=== PATIENT | female | born 1940 | race Caucasian/White ===

== ENCOUNTER 2017-08-01 01:38 | Inpatient (IN) | payer MEDICARE, OTHER ==
[~2017-08-01] VITALS: Ht 172.7 cm; Wt 70.5 kg
[2017-08-01 02:56] LABS: Basophils # (auto) 0.1 uL; Basophils % (auto) 0.6 % (0.0-2.0); Eosinophils # (auto) 0 uL; Hemoglobin 15.2 g/dL (12.2-16.2); Lymphocytes # (auto) 0.7 uL
[2017-08-01 02:58] LABS: Hematocrit 44.2 % (36.0-46.0); Lymphocytes % (auto) 7.9 % (10.0-50.0); Mean Corpuscular Hemoglobin 35.2 pg (28.0-32.0); Mean Corpuscular Hgb Conc. 34.5 g/dL (32.0-36.0); Mean Corpuscular Volume 102.1 fL (80.0-100.0); Monocytes # (auto) 0.3 uL; Monocytes % (auto) 3.6 % (0.0-12.0); Neutrophils # (auto) 7.7 uL; Neutrophils % (auto) 87.9 % (37.0-80.0); Platelet Count (auto) 263 10^3/uL (140-450); Red Blood Cells 4.33 10^6/uL (4.0-5.20); Red Cell Distribution Width 12.8 % (11.8-14.3); White Blood Cell 8.8 10^3/uL (4.4-10.8)
[2017-08-01 03:09] LABS: INR 0.98 (0.9-1.15); Partial Thromboplastin Time 22.1 sec (22.64-33.71); Prothrombin Time 10.7 sec (9.37-12.3)
[2017-08-01 03:15] LABS: Alanine Aminotransferase 18 U/L (13-56); Albumin 3.9 g/dL (3.4-5.0); Amylase 35 U/L (25-115); Anion Gap 15 (5-15); Aspartate Aminotransferase 12 U/L (15-37); BUN/Creatinine Ratio 13.1; Blood Urea Nitrogen 11 mg/dL (7-18); Calcium 8.7 mg/dL (8.5-10.1); Carbon Dioxide 21 mmol/L (21-32); Chloride 105 mmol/L (98-107); GFR African American 85 mL/min; GFR Non-African American 70 mL/min; Glucose 157 mg/dL (74-106); Lipase 143 U/L (73-393); Magnesium 2.2 mg/dL (1.6-2.6); Potassium 3.5 mmol/L (3.5-5.1); Sodium 141 mmol/L (136-145)
[2017-08-01] MEDS ORDERED: SODIUM CHLORIDE 0.9% 1,000 ML IV ONE (03:15)
[2017-08-01] MEDS ORDERED: ONDANSETRON HCL 4 MG/2 ML VIAL IV ONE (03:15)
[2017-08-01] MEDS ORDERED: MORPHINE SULFATE 4 MG/ML SYR/VIAL IV ONE ×2 (03:15→05:45)
[2017-08-01 03:20] LABS: Alkaline Phosphatase 107 U/L (45-117); Bilirubin, Total 0.6 mg/dL (0.2-1.0); Total Protein 7.4 g/dL (6.4-8.2)
[2017-08-01] MEDS ORDERED: PROMETHAZINE HCL 25 MG/ML 1ML IV ONE (04:15)
[2017-08-01] MEDS ORDERED: SODIUM CHLORIDE 0.9% 1,000 ML IV SCH ×2 (06:00→12:45)
[2017-08-01] MEDS ORDERED: KETOROLAC TROMETH 30 MG/ML 1ML VIAL IV ONE (06:00)
[2017-08-01] MEDS ORDERED: SODIUM CHLORIDE 0.9% 500 ML IV ONE (06:00)
[2017-08-01] MEDS ORDERED: LOPERAMIDE HCL 2 MG CAP PO ONE (06:00)
[2017-08-01] MEDS ORDERED: TEMAZEPAM 15 MG CAP PO PRN (06:00)
[2017-08-01] MEDS ORDERED: LOPERAMIDE HCL 2 MG CAP PO PRN (06:00)
[2017-08-01] MEDS ORDERED: ACETAMINOPHEN 325 MG TAB PO PRN (06:00)
[2017-08-01] MEDS ORDERED: MORPHINE SULFATE 4 MG/ML SYR/VIAL IV PRN (06:00)
[2017-08-01] MEDS ORDERED: PANTOPRAZOLE 40 MG/10 ML VIAL IV ONE (06:30)
[2017-08-01] MEDS: PROMETHAZINE HCL 25 MG/ML 1ML IV PRN ×2 (09:43→20:52)
[2017-08-01] MEDS: ENOXAPARIN SOD 40 MG/0.4 ML SYRINGE SC SCH (09:43)
[2017-08-01] MEDS ORDERED: LEVOFLOXACIN 750MG 150 ML IV ONE (10:45)
[2017-08-01] MEDS ORDERED: SODIUM CHLORIDE 0.9% 2,000 ML IV ONE (10:45)
[2017-08-01 11:13] LABS: Basophils # (auto) 0 uL; Eosinophils # (auto) 0 uL; Monocytes # (auto) 0.2 uL
[2017-08-01 11:15] LABS: Basophils % (auto) 0.2 % (0.0-2.0); Eosinophils % (auto) 0.1 % (0.0-7.0); Hematocrit 44.5 % (36.0-46.0); Hemoglobin 14.9 g/dL (12.2-16.2); Lymphocytes # (auto) 0.4 uL; Lymphocytes % (auto) 4.9 % (10.0-50.0); Mean Corpuscular Hemoglobin 34.5 pg (28.0-32.0); Mean Corpuscular Hgb Conc. 33.4 g/dL (32.0-36.0); Mean Corpuscular Volume 103.3 fL (80.0-100.0); Monocytes % (auto) 1.9 % (0.0-12.0); Neutrophils % (auto) 92.9 % (37.0-80.0); Platelet Count (auto) 286 10^3/uL (140-450); Red Cell Distribution Width 13.2 % (11.8-14.3); White Blood Cell 8.6 10^3/uL (4.4-10.8)
[2017-08-01] MEDS ORDERED: metroNIDAZOLE 500MG/100ML 100 ML IV ONE (12:00)
[2017-08-01] MEDS: HYDROcodone-ACET 5/325MG TAB PO PRN ×2 (12:41→23:55)
[2017-08-01] MEDS ORDERED: METO-159 PO (14:52)
[2017-08-01] MEDS ORDERED: ZOLP10TA PO (14:52)
[2017-08-01 15:00] VITALS: BP 170/103
[2017-08-01] MEDS ORDERED: ZOLPIDEM TARTRATE 5 MG TAB PO PRN (15:00)
[2017-08-01] MEDS: METOPROLOL SUCCINATE XL 50 MG TAB PO SCH (15:54)
[2017-08-01 17:00] VITALS: BP 132/81
[2017-08-01 17:58] LABS: Urine Bacteria NONE SEEN /hpf (None Seen); Urine Blood 2+ /uL (Negative); Urine Mucus FEW (None Seen); Urine Specific Gravity 1.014 (1.001-1.035); Urine WBC 2 /hpf (0 - 5)
[2017-08-01] MEDS ORDERED: METO1TAB9 PO (17:59)
[2017-08-01] MEDS: metroNIDAZOLE 500MG/100ML 100 ML IV SCH (20:51)
[2017-08-01] MEDS: hydrALAZINE HCL 20 MG/ML VL IV PRN ×2 (20:52→23:53)
[2017-08-01] MEDS ORDERED: LORazepam 0.5 MG TAB PO PRN (21:15)
[2017-08-01] MEDS ORDERED: hydrALAZINE HCL 20 MG/ML VL IV PRN (21:15)
[2017-08-01 21:52] VITALS: BP 202/99
[2017-08-01] MEDS: PANTOPRAZOLE 40 MG/10 ML VIAL IV SCH (22:24)
[2017-08-02] MEDS: metroNIDAZOLE 500MG/100ML 100 ML IV SCH ×2 (04:34→13:22)
[2017-08-02 05:00] VITALS: BP 153/92
[2017-08-02 05:37] LABS: Eosinophils # (auto) 0 uL; White Blood Cell 11.8 10^3/uL (4.4-10.8)
[2017-08-02 05:40] LABS: Basophils # (auto) 0.1 uL; Basophils % (auto) 1.2 % (0.0-2.0); Hemoglobin 14.9 g/dL (12.2-16.2); Lymphocytes # (auto) 0.7 uL; Lymphocytes % (auto) 5.6 % (10.0-50.0); Mean Corpuscular Hemoglobin 34.5 pg (28.0-32.0); Mean Corpuscular Hgb Conc. 33.8 g/dL (32.0-36.0); Mean Corpuscular Volume 102.1 fL (80.0-100.0); Monocytes # (auto) 0.6 uL; Monocytes % (auto) 5.1 % (0.0-12.0); Neutrophils # (auto) 10.4 uL; Neutrophils % (auto) 88.1 % (37.0-80.0); Platelet Count (auto) 323 10^3/uL (140-450); Red Blood Cells 4.31 10^6/uL (4.0-5.20); Red Cell Distribution Width 13.1 % (11.8-14.3)
[2017-08-02 05:48] LABS: Albumin 3.7 g/dL (3.4-5.0); BUN/Creatinine Ratio 15.8; Calcium 8.5 mg/dL (8.5-10.1)
[2017-08-02 05:51] LABS: Bilirubin, Total 1.6 mg/dL (0.2-1.0); Total Protein 7.1 g/dL (6.4-8.2)
[2017-08-02 06:01] LABS: Potassium 2.7 mmol/L (3.5-5.1)
[2017-08-02] MEDS ORDERED: POTASSIUM CHL 10% (20 MEQ/15ML) 15ml ORAL SOLN PO ONE (06:15)
[2017-08-02 08:00] VITALS: BP 161/91
[2017-08-02 09:00] VITALS: BP 161/91
[2017-08-02] MEDS: PANTOPRAZOLE 40 MG/10 ML VIAL IV SCH (09:06)
[2017-08-02] MEDS: ENOXAPARIN SOD 40 MG/0.4 ML SYRINGE SC SCH (09:07)
[2017-08-02] MEDS: METOPROLOL SUCCINATE XL 50 MG TAB PO SCH (09:07)
[2017-08-02] MEDS ORDERED: LEVOFLOXACIN 750MG 150 ML IV SCH (10:00)
[2017-08-02 11:10] LABS: Albumin 3.8 g/dL (3.4-5.0); BUN/Creatinine Ratio 12.3; Bilirubin, Total 1.5 mg/dL (0.2-1.0); Calcium 8.9 mg/dL (8.5-10.1); Potassium 3.6 mmol/L (3.5-5.1)
[2017-08-02] MEDS ORDERED: SODIUM CHLORIDE 0.9% 1,000 ML IV ONE (11:45)
[2017-08-02] MEDS ORDERED: SODIUM CHLORIDE 0.9% 1,000 ML IV SCH (12:45)
[2017-08-02 13:00] VITALS: BP 155/86
[2017-08-02 13:01] VITALS: BP 155/86
== END 2017-08-02 15:10 | disposition home or self-care (01) | DRG 392 ==
LOC: ER 01:38 → EDBD 01:38 → OVERFLOW 01:39 → WEST WING 14:27
PROVIDERS: ADMIT Nurse Practitioner; ATTEND Internal Medicine
DX: K57.90 Diverticulosis of intestine, part unspecified, without perforation or abscess without bleeding (principal); E27.9 Disorder of adrenal gland, unspecified; K43.9 Ventral hernia without obstruction or gangrene; Z90.710 Acquired absence of both cervix and uterus; Z88.0 Allergy status to penicillin; Z88.2 Allergy status to sulfonamides
CPT/HCPCS: 36415; 71045; 74176; 80053; 81001; 82150; 83690; 83735; 84484; 85025; 85610; 85730; 87086; 93005; 94761; 96374; 96375; 96376; 97163; C9113; J1885; J1956; J2405; J3490

== ENCOUNTER 2018-08-02 19:29 | Emergency (ER) | payer MEDICARE, OTHER ==
[~2018-08-02] VITALS: Ht 170.2 cm; Wt 72.6 kg
[~2018-08-02 19:29] MED LIST: METO1TAB9 PO; ZOLP10TA PO
[2018-08-02] MEDS ORDERED: ONDANSETRON HCL 4 MG/2 ML VIAL IV ONE ×2 (20:30→22:00)
[2018-08-02 21:17] LABS: Basophils # (auto) 0 uL; Eosinophils # (auto) 0 uL; Lymphocytes # (auto) 0.4 uL; Monocytes # (auto) 0.2 uL; Nucleated Red Blood Cells % 0.1 %; White Blood Cell 9.2 10^3/uL (4.4-10.8)
[2018-08-02 21:20] LABS: Basophils % (auto) 0.4 % (0.0-2.0); Hematocrit 48.8 % (36.0-46.0); Hemoglobin 16.7 g/dL (12.2-16.2); Lymphocytes % (auto) 4.4 % (10.0-50.0); Mean Corpuscular Hemoglobin 36.2 pg (28.0-32.0); Mean Corpuscular Hgb Conc. 34.3 g/dL (32.0-36.0); Mean Corpuscular Volume 105.7 fL (80.0-100.0); Monocytes % (auto) 2.1 % (0.0-12.0); Neutrophils # (auto) 8.5 uL; Neutrophils % (auto) 93.1 % (37.0-80.0); Platelet Count (auto) 214 10^3/uL (140-450); Red Blood Cells 4.62 10^6/uL (4.0-5.20); Red Cell Distribution Width 13.4 % (11.8-14.3)
[2018-08-02 21:40] LABS: Anion Gap 11 (5-15); Blood Urea Nitrogen 9 mg/dL (7-18); Calcium 8.9 mg/dL (8.5-10.1); Carbon Dioxide 23 mmol/L (21-32); Chloride 104 mmol/L (98-107); Glucose 147 mg/dL (74-106); Magnesium 2.1 mg/dL (1.6-2.6); Potassium 3.7 mmol/L (3.5-5.1); Sodium 138 mmol/L (136-145)
[2018-08-02 21:48] LABS: Alanine Aminotransferase 23 U/L (13-56); Albumin 4.2 g/dL (3.4-5.0); Alkaline Phosphatase 108 U/L (45-117); Aspartate Aminotransferase 19 U/L (15-37); BUN/Creatinine Ratio 12.2; Bilirubin, Total 1.2 mg/dL (0.2-1.0); GFR African American 98 mL/min; GFR Non-African American 81 mL/min; Total Protein 7.7 g/dL (6.4-8.2)
[2018-08-02] MEDS ORDERED: SODIUM CHLORIDE 0.9% 1,000 ML IVB ONE (21:58)
[2018-08-02] MEDS ORDERED: PANTOPRAZOLE 40 MG/10 ML VIAL IV ONE (22:00)
[2018-08-02] MEDS ORDERED: HYDROmorphone HCL 2 MG/ML VL IV ONE (22:00)
[2018-08-02 22:25] LABS: INR 1.01 (0.9-1.15); Partial Thromboplastin Time 21.5 sec (23.78-33.04); Prothrombin Time 10.8 sec (9.27-12.13)
[2018-08-02 22:36] LABS: Amylase 31 U/L (25-115); Lipase 100 U/L (73-393)
[2018-08-02 23:43] LABS: Urine Bacteria FEW /hpf (None Seen); Urine Blood 2+ /uL (Negative); Urine Specific Gravity 1.015 (1.001-1.035); Urine WBC 1 /hpf (0 - 5)
[2018-08-03 06:05] VITALS: BP 154/73
== END 2018-08-03 06:40 | disposition home or self-care (01) ==
LOC: ER 19:29 → EDBD 19:29 → OVERFLOW 08-03 02:33 → UNDOADMIN 08-03 02:33 → ER 08-03 06:40
DX: E86.0 Dehydration (principal); E78.5 Hyperlipidemia, unspecified; I10 Essential (primary) hypertension; Z90.49 Acquired absence of other specified parts of digestive tract; Z90.710 Acquired absence of both cervix and uterus; Z90.89 Acquired absence of other organs; Z88.0 Allergy status to penicillin; Z88.2 Allergy status to sulfonamides
CPT/HCPCS: 36415; 74176; 80053; 81001; 82150; 83690; 83735; 84484; 85025; 85610; 85730; 93005; 96361; 96374; 96375; 99284; C9113; J1170; J2405; J7030